=== PATIENT | female | born 1960 | race Caucasian/White ===

== ENCOUNTER 2022-07-12 21:26 | Emergency (ER) | payer SELFPAY ==
[~2022-07-12] VITALS: Ht 170.2 cm; Wt 145.0 kg
[2022-07-12] MEDS ORDERED: SODIUM CHLORIDE 0.9% 500 ML IV ONE (21:45)
[2022-07-12 21:52] VITALS: BP 90/57
[2022-07-12 22:40] LABS: Basophils # (auto) 0.1 10 ^3/uL (0-0.2); Eosinophils # (auto) 0.2 10 ^3/uL (0-0.8); Eosinophils % (auto) 4.4 % (0.0-7.0); Hematocrit 43.3 % (36.0-46.0); Hemoglobin 14.2 g/dL (12.2-16.2); Lymphocytes % (auto) 35.5 % (10.0-50.0); Mean Corpuscular Hemoglobin 30.4 pg (28.0-32.0); Mean Corpuscular Hgb Conc. 32.8 g/dL (32.0-36.0); Mean Corpuscular Volume 92.7 fL (80.0-100.0); Monocytes # (auto) 0.5 10 ^3/uL (0-1.3); Monocytes % (auto) 8.8 % (0.0-12.0); Neutrophils # (auto) 2.8 10 ^3/uL (1.6-8.6); Neutrophils % (auto) 50.3 % (37.0-80.0); Nucleated Red Blood Cells % 0.1 %; Red Blood Cells 4.67 10^6/uL (4.0-5.20); Red Cell Distribution Width 13.4 % (11.8-14.3); White Blood Cell 5.6 10^3/uL (4.4-10.8)
[2022-07-12 23:03] LABS: Albumin 3.3 g/dL (3.4-5.0); Anion Gap 7 (5-15); BUN/Creatinine Ratio 18.3; Blood Alcohol < 3.0 mg/dL (0-5); Blood Urea Nitrogen 23 mg/dL (7-18); Calcium 8.2 mg/dL (8.5-10.1); Carbon Dioxide 25 mmol/L (21-32); Chloride 110 mmol/L (98-107); GFR African American 56 mL/min; GFR Non-African American 46 mL/min; Glucose 92 mg/dL (74-106); Magnesium 2.5 mg/dL (1.6-2.6); Potassium 3.4 mmol/L (3.5-5.1); Sodium 142 mmol/L (136-145)
[2022-07-12 23:06] LABS: Alanine Aminotransferase 31 U/L (13-56); Alkaline Phosphatase 98 U/L (45-117); Aspartate Aminotransferase 23 U/L (15-37); Bilirubin, Total 0.2 mg/dL (0.2-1.0); Total Protein 6.6 g/dL (6.4-8.2)
== END 2022-07-12 23:16 | disposition left against medical advice (07) ==
LOC: ER 21:26 → EDBD 21:26 → ER 23:16
DX: R55 Syncope and collapse (principal); F12.10 Cannabis abuse, uncomplicated; Z53.29 Procedure and treatment not carried out because of patient's decision for other reasons
CPT/HCPCS: 36415; 70450; 71045; 80053; 80320; 83605; 83735; 84484; 85025; 93005